=== PATIENT | female | born 1995 | race American Indian/Alaskan Native ===

== ENCOUNTER 2016-09-21 15:06 | Observation (INO) | payer MEDICAID ==
[2016-09-21] MEDS ORDERED: NACL 0.9% 1000 ML 2,000 ML ONE (16:02)
[2016-09-21] MEDS ORDERED: NACL 0.9% 1000 ML 2,000 ML IV ONE (16:06)
[2016-09-21] MEDS ORDERED: ZOFRAN IV ONE (16:22)
[2016-09-21] MEDS ORDERED: SUBLIMAZE IV ONE (16:22)
--- NOTE | 2016-09-21 16:28 | Emergency Department Report ---
HPI - General Chief Complaint: Vaginal Bleeding Time Seen by Provider: 09/21/16 16:14 - HPI HPI: Room 19 The patient is a 21-year-old female presenting with chief complaint of vaginal bleeding. The patient is status post D&C 3 weeks ago at 8 weeks gestational age. The patient states she has had vaginal bleeding for the past 3 weeks going through approximately 20 pads per day. Patient states his afternoon at 13 :30 she began having heavier vaginal bleeding while at work. Patient reports having a syncopal episode at work after the increase in vaginal bleeding and EMS was called. The patient currently complains of feeling dizzy when she stands up in addition to lower bowel pain and low back pain otherwise denies complaints Location: Pelvis, see above Duration: [see above] Quality: Pain, dizziness Severity: Moderate Modifying factors: [see above] Context: [see above] Mode of transportation: [not driving] ED Past Medical Hx - Past Medical History Previous Medical History?: Yes Additional medical history: Iron deficiency anemia - Surgical History Past Surgical History?: Yes Additional Surgical History: D&C at 8 weeks gestational age - Family History Family history: no significant - Social History Smoking Status: Former Smoker (none 2 weeks) Substance Use Type: None (denies illicit drug use), Alcohol - Medications Home Medications: Home Medications Medication Instructions Recorded Confirmed Last Taken Type No Known Home Medications [No 09/21/16 09/21/16 Unknown History Reported Home Medications] ED Review of Systems ROS: Stated complaint: EMS Other details as noted in HPI Comment: All other systems reviewed and negative Constitutional: denies: chills, fever Eyes: denies: eye pain, eye discharge, vision change ENT: denies: ear pain, throat pain Respiratory: denies: cough, shortness of breath, wheezing Cardiovascular: denies: chest pain, palpitations Endocrine: no symptoms reported Gastrointestinal: abdominal pain Genitourinary: abnormal menses Musculoskeletal: denies: back pain, joint swelling, arthralgia Skin: denies: rash, lesions Neurological: other (syncope). denies: headache, weakness, paresthesias Psychiatric: denies: anxiety, depression Hematological/Lymphatic: denies: easy bleeding, easy bruising Physical Exam - Physical Exam Vital Signs: Vital Signs 09/21/16 16:11 Temperature 98.2 F Pulse Rate 116 H Blood Pressure 78/30 O2 Sat by Pulse 95 Oximetry Physical Exam: GENERAL: The patient is well-developed well-nourished female lying on stretcher appearing to be in mild discomfort. [] HEENT: Normocephalic. Atraumatic. Extraocular motions are intact. Patient has moist mucous membranes. NECK: Supple. Midline CHEST/LUNGS: Clear to auscultation. There is no respiratory distress noted. HEART/CARDIOVASCULAR: Regular. There is no tachycardia. There is no gallop rub or murmur. ABDOMEN: Abdomen is soft, with diffuse discomfort to palpation. Patient has normal bowel sounds. There is no abdominal distention. SKIN: There is no rash. There is no edema. There is no diaphoresis. NEURO: The patient is awake, alert, and oriented. The patient is cooperative. The patient has normal speech MUSCULOSKELETAL: There is no evidence of acute injury. PELVIC: Large amount of bright red blood in the vaginal vault. Multiple large clots removed from vaginal vault without clearing. Still unable to visualize cervix given heavy bleeding ED Course Vital Signs 09/21/16 16:11 Temperature 98.2 F Pulse Rate 116 H Blood Pressure 78/30 O2 Sat by Pulse 95 Oximetry - Reevaluation(s) Reevaluation #1: 09/21/16 19:58 Patient again became hypotensive. Subsequently 2 units of PRBCs ordered - Consultations Consultation #1: 09/21/16 19:[address] Aguilera (PHOTONICS ENGINEERING TECHNICIAN)-will take to the or for D&C. Requests 2 units of blood be transfused given recurrent hypotension ED Medical Decision Making - Lab Data Result diagrams: 09/21/16 16:54 Laboratory Tests 09/21/16 09/21/16 09/21/16 16:54 16:54 18:55 WBC 8.9 RBC 2.98 L Hgb 8.1 L Hct 28.3 L MCV 95 MCH 27 L MCHC 29 L RDW 15.1 Plt Count 148 Lymph % (Auto) 12.8 L [place] % (Auto) 5.2 Eos % (Auto) 0.1 Baso % (Auto) 0.2 Lymph # 1.1 L [place] # 0.5 Eos # 0.0 Baso # 0.0 Seg Neutrophils % 81.7 H Seg Neutrophils # 7.3 HCG, Quant 6249 H Blood Type B POSITIVE Antibody Screen Negative Crossmatch See Detail - Radiology Data Radiology results: report reviewed (pelvic ultrasound), image reviewed (pelvic ultrasound) - Differential Diagnosis retained products of conception, hemorrhagic shock Critical care attestation.: If time is entered above; I have spent that time in minutes in the direct care of this critically ill patient, excluding procedure time. ED Disposition Clinical Impression: Menorrhagia, Retained products of conception, Hemorrhagic shock Disposition: OP ADMITTED IP TO THIS HOSP Is pt being admited?: Yes Does the pt Need Aspirin: No Condition: Serious Time of Disposition: 20:00 (admitted to PHOTONICS ENGINEERING TECHNICIAN)
[2016-09-21 17:39] LABS: Basophils % (Auto) 0.2 % (0.0-1.8); Eosinophils % (Auto) 0.1 % (0.0-4.3); Mean Corpuscular HGB Conc 29 % (30-34); Mean Corpuscular Hemoglobin 27 pg (28-32); Mean Corpuscular Volume 95 fl (79-97); Platelet Count 148 K/mm3 (140-440); Red Blood Count 2.98 M/mm3 (3.65-5.03); Red Cell Distribution Width 15.1 % (13.2-15.2); White Blood Count 8.9 K/mm3 (4.5-11.0)
[2016-09-21 17:40] LABS: Hematocrit 28.3 % (30.3-42.9); Hemoglobin 8.1 gm/dl (10.1-14.3)
--- NOTE | 2016-09-21 18:53 | Ultrasound Report ---
FINAL REPORT EXAM: US PELVIC COMPLETE HISTORY: vaginal bleeding . D and C 3 weeks ago with bleeding and clot formation TECHNIQUE: Ultrasound of the pelvis using transabdominal imaging PRIORS: None. FINDINGS: Uterus: Uterus is enlarged in size and normal, anteverted in position, and homogeneous in echogenicity without focal fibroid formation. The uterus measures 17.4 x 8.5 x 11.0 cm in size. Cervix: There is a complex echogenic heterogeneous avascular mass in the cervical canal measuring 9.1 x 8.0 x 7.0 cm. Findings are concerning for blood products/hematoma. Retained products of conception are not entirely excluded. Endometrial stripe: Measures 14 mm in thickness and contains fluid and echogenic debris within the endometrial canal. Ovaries: Neither ovary is visualized during this exam, likely related to the size of the uterus. Other: There is no evidence for solid adnexal mass or free fluid in the cul-de-sac is seen. IMPRESSION: 1 .Large echogenic complex focus in the cervical canal. This most likely represent hematoma/blood products, however, retained products of conception are not entirely excluded 2. Fluid and echogenic debris within the endometrial canal of the uterus, likely related to blood products. 3. Enlarged uterus consistent with state of the patient. 4. Ovaries are not visualized
--- NOTE | 2016-09-21 18:59 | Ultrasound Report ---
FINAL REPORT EXAM: US TRANSVAGINAL HISTORY: vaginal bleeding s/p D and C 3 weeks ago with bleeding and clot formation TECHNIQUE: Ultrasound of the pelvis using transvaginal imaging PRIORS: Pelvic ultrasound 08/13/2016 FINDINGS: Uterus: Uterus is enlarged in size, anteverted in position, and normal and homogeneous in echogenicity without focal fibroid formation. The uterus measures 17.4 x 8.5 x 11.0 cm in size cm in size. Cervix: There is a complex echogenic heterogeneous avascular mass in the cervical canal measuring 9.1 x 8.0 x 7.0 cm. Findings are concerning for blood products/hematoma. Retained products of conception are not entirely excluded. Endometrial stripe: Measures 14 mm in thickness and contains fluid and echogenic debris within the endometrial canal. Ovaries: Neither ovary is visualized during this exam, likely related to the size of the uterus. Other: There is no evidence for solid adnexal mass or free fluid in the cul-de-sac is seen. IMPRESSION: 1 .Large echogenic complex focus in the cervical canal. This most likely represent hematoma/blood products, however, retained products of conception are not entirely excluded 2. Fluid and echogenic debris within the endometrial canal of the uterus, likely related to blood products. 3. Enlarged uterus consistent with state of the patient. 4. Ovaries are not visualized
[2016-09-21] MEDS ORDERED: NACL 0.9% 1000 ML 1,000 ML ONE ×4 (19:48→22:58)
[2016-09-21] MEDS ORDERED: NACL 0.9% 500 ML 500 ML IV ONE (19:50)
[2016-09-21] MEDS ORDERED: SUBLIMAZE ONE (20:34)
[2016-09-21] MEDS ORDERED: DIPRIVAN 10 MG/ML IV ONE (20:34)
[2016-09-21] MEDS ORDERED: VERSED ONE (20:40)
[2016-09-21] MEDS ORDERED: PEPCID IV ONE (20:49)
[2016-09-21] MEDS ORDERED: ANCEF/STERILE WATER 2 GM/20 ML 20 ML IV ONE (20:50)
[2016-09-21] MEDS ORDERED: METHERGINE IM ONE (20:50)
--- NOTE | 2016-09-21 20:55 | Short Stay Summary ---
Short Stay Documentation Date of service: 09/21/16 Narrative H&P: The patient is a 21-year-old female presenting with chief complaint of vaginal bleeding. The patient is status post D&C 3 weeks ago at 8 weeks gestational age. The patient states she has had vaginal bleeding for the past 3 weeks going through approximately 20 pads per day. Patient states his afternoon at 13:30 she began having heavier vaginal bleeding while at work. Patient reports having a syncopal episode at work after the increase in vaginal bleeding and EMS was called. The patient currently complains of feeling dizzy when she stands up in addition to lower bowel pain and low back pain otherwise denies complaints. Patient has an hcg of over 6000. - History H&P: dictated Past Medical History: No medical history Social history: single - Allergies and Medications Current Medications: Allergies latex Adverse Reaction (Intermediate, Verified 05/25/15 13:12) Hives Home Medications Medication Instructions Recorded Confirmed Last Taken Type No Known Home Medications [No 09/21/16 09/21/16 Unknown History Reported Home Medications] - Physical exam General appearance: no acute distress Integumentary: no rash, no growths Lungs: Clear to auscultation Breasts: deferred Heart: Regular rate, Normal S1, Normal S2 Gastrointestinal: normal, normoactive bowel sounds Female Genitourinary: other (large amount of blood and clots in vaginal vault) Rectal Exam: deferred - Brief post op/procedure progress note Date of procedure: 09/21/16 Pre-op diagnosis: Retained products of D&C after termination Post-op diagnosis: same Procedure: Dilation and Evacuation Anesthesia: MAC Findings: enlarged uterus with large mass of tissue visible at os along with large amount of clots in vaginal vault Surgeon: SUKUMAR ADAIR Estimated blood loss: other (300cc in clots prior to start of procedure) Pathology: list (products of conception) Specimen disposition: to lab Condition: stable - Hospital course Hospital course: Unremarkable - Disposition Condition at discharge: Good Disposition: DISCHARGED TO HOME OR SELFCARE - Discharge Diagnoses (1) Menorrhagia Status: Acute (2) Retained products of conception Status: Chronic Comment: After induced Short Stay Discharge Plan Activity: advance as tolerated Weight Bearing Status: Weight Bear as Tolerated Diet: regular Additional Instructions: Pelvic rest for 4 weeks Follow up with: SONIDO CAREY MD [Staff Physician] - 14 Days Prescriptions: HYDROcodone/APAP 5-325 [[place] 5/325] 1 each PO Q6HR PRN #15 tablet PRN Reason: Pain Ibuprofen [Motrin] 600 mg PO Q8H PRN #25 tablet PRN Reason: Pain
[2016-09-21] MEDS ORDERED: ANCEF/STERILE WATER 2 GM/20 ML 20 ML IV NR (21:00)
--- NOTE | 2016-09-21 21:05 | Anesthesia Consultation ---
Anesthesia Consult and Med Hx Date of service: 09/21/16 - Airway Anesthetic Teeth Evaluation: Good ROM Head & Neck: Adequate Mental/Hyoid Distance: Adequate Mallampati Class: Class II Intubation Access Assessment: Probably Good - Pulmonary Exam CTA: Yes - Cardiac Exam Cardiac Exam: RRR - Pre-Operative Health Status ASA Pre-Surgery Classification: ASA2, Emergency Proposed Anesthetic Plan: General - Pulmonary Hx Smoking: Yes Hx Asthma: No COPD: No Hx Pneumonia: No - Cardiovascular System Hx Hypertension: No - Central Nervous System Hx Seizures: No Hx Psychiatric Problems: No - Endocrine Hx Renal Disease: No Hx End Stage Renal Disease: No Hx Liver Disease: No Hx Non-Insulin Dependent Diabetes: No Hx Hypothyroidism: No Hx Hyperthyroidism: No - Hematic Hx Anemia: Yes Hx Sickle Cell Disease: No - Other Systems Hx Alcohol Use: No Hx Substance Use: Yes (marijuana)
[2016-09-21] MEDS ORDERED: ZOFRAN IV PRN ×2 (21:06→22:17)
[2016-09-21] MEDS ORDERED: DILAUDID IV PRN (21:06)
[2016-09-21] MEDS ORDERED: REGLAN IV PRN (21:06)
--- NOTE | 2016-09-21 21:06 | Anesthesia Day of Surgery ---
Anesthesia Day of Surgery - Day of Surgery Patient Examined: Yes Patient H&P Reviewed: Yes Patient is NPO: Yes
[2016-09-21] MEDS ORDERED: SILVER NITRATE TP ONE (21:40)
[2016-09-21] MEDS ORDERED: ZOFRAN ONE (22:16)
[2016-09-21] MEDS ORDERED: XYLOCAINE MPF 2% ONE (22:16)
[2016-09-21] MEDS ORDERED: BENADRYL ONE (22:16)
[2016-09-21] MEDS ORDERED: NORCO 5/325 PO PRN (22:17)
--- NOTE | 2016-09-21 22:46 | Post Anesthesia Evaluation ---
- Post Anesthesia Evaluation Patient Participated: Yes Airway Patent: Yes Stable Respiratory Function: Yes Nausea/Vomiting: No Temp > 96.8F: Yes Pain Manageable: Yes Adequeate Hydration: Yes Anesthesia Complications: No Block Receding Appropriately: Not Applicable Patient on Ventilator: No
[2016-09-21] MEDS ORDERED: D5/0.45NS 1,000 ML IV SCH (23:00)
[2016-09-22 05:02] LABS: Basophils % (Auto) 0.1 % (0.0-1.8); Eosinophils % (Auto) 0.1 % (0.0-4.3); Hematocrit 27.1 % (30.3-42.9); Hemoglobin 8.7 gm/dl (10.1-14.3); Mean Corpuscular HGB Conc 32 % (30-34); Mean Corpuscular Hemoglobin 28 pg (28-32); Mean Corpuscular Volume 86 fl (79-97); Platelet Count 156 K/mm3 (140-440); Red Blood Count 3.15 M/mm3 (3.65-5.03); Red Cell Distribution Width 14.4 % (13.2-15.2); White Blood Count 11.2 K/mm3 (4.5-11.0)
[2016-09-22 05:32] LABS: Bilirubin,Urine NEG (Negative); Blood,Urine LG (Negative); Ketones,Urine NEG (Negative); Leukocyte Esterase,Urine NEG (Negative); Mucus,Urine FEW /HPF; Nitrite,Urine NEG (Negative); Protein,Urine <15 mg/dL mg/dL (Negative); Urobilinogen,Urine < 2.0 mg/dL (<2.0)
[2016-09-22 09:14] VITALS: BP 104/52
--- NOTE | 2016-09-22 12:36 | Operative Report ---
PREOPERATIVE DIAGNOSES: 1. Retained products of conception following an induced . 2. Menorrhagia. 3. Hemorrhagic shock. POSTOPERATIVE DIAGNOSES: 1. Retained products of conception following an induced . 2. Menorrhagia. 3. Hemorrhagic shock. PROCEDURE: Dilation and evacuation of uterus. SURGEON: Cordelia Aguilera MD ANESTHESIA: LMA. IV FLUIDS: 1000 mL. URINE OUTPUT: 200 mL clear at the beginning of the procedure. ESTIMATED BLOOD LOSS: 300 mL in clots within the vaginal vault prior to descent of the procedure. INDICATIONS: The patient is a 21-year-old 3, para 3, who presented to the Emergency Room after having a single episode at her work place. She was bleeding approximately 20 pads a day with an increase in amount today. For the last 3 weeks after she underwent an elective at approximately 8 weeks gestational age. The patient stated that she thought the amount of bleeding was normal after this type of procedure. When she presented to the Emergency Department, she was hypotensive and was still profusely bleeding. DESCRIPTION OF PROCEDURE: The patient was taken to the OR, identified as herself. The IV running and in place. She was given adequate anesthesia and placed in the dorsal lithotomy position. She was prepped and draped in the normal sterile fashion. In the vaginal vault, there were large amounts of blood clots that were coming out during the prep. Attention was turned to the patient. She was then prepped and draped in the normal sterile fashion. Attention was turned to the patient's urethra. The bladder was drained of approximately 200 mL of clear yellow urine. The bivalved speculum was then placed through the patient's vagina. There was a large approximately 4 cm piece of tissue that was protruding from the cervical os that was grasped with a ring forceps and handed off to pathology Following this, the suction curettage was performed with a #7 curved curette. There were multiple large pieces of tissue that were retrieved from the uterus. Once the suction curettage was completed, a banjo curette was used to perform a sharp curettage until there was a gritty texture noted in all four quadrants of the uterus. At this point, the uterus began to clamp down and the bleeding began to become very minimal. Once the bleeding was minimal, all the instruments were removed from the patient's vagina. She was awakened and taken to recovery in stable condition. The sponge, lap, needle, and instrument counts were correct x2. She tolerated the procedure well. JOB# [id number] MEMO/TIBURCIO
== END 2016-09-22 11:00 | disposition home or self-care (01) ==
LOC: ED 15:06 → OR 20:38 → OB 22:06
PROVIDERS: ADMIT Obstetrics & Gynecology; ATTEND Obstetrics & Gynecology
DX: O04.6 Delayed or excessive hemorrhage following (induced) termination of pregnancy (principal); O04.8 (Induced) termination of pregnancy with other and unspecified complications
CPT/HCPCS: 36415; 59812; 76830; 76856; 81001; 84702; 85025; 86850; 86900; 86901; 86920; 88304; 96374; 96375; 99285; G0378; J0690; J1200; J2210; J2405; J2704; J3010; J7030; J7040; P9016; 88305; 96361; J2250

== ENCOUNTER 2017-10-07 11:25 | Emergency (ER) | payer MEDICAID ==
[2017-10-07 12:20] LABS: Bilirubin,Urine NEG (Negative); Blood,Urine NEG (Negative); Color,Urine Yellow (Yellow); Mucus,Urine 1+ /HPF; Nitrite,Urine NEG (Negative)
[2017-10-07 13:40] LABS: Basophils % (Auto) 0.3 % (0.0-1.8); Eosinophils % (Auto) 0.5 % (0.0-4.3); Hematocrit 35.3 % (30.3-42.9); Hemoglobin 11.4 gm/dl (10.1-14.3); Lymphocytes # (Auto) 1.4 K/mm3 (1.2-5.4); Lymphocytes % (Auto) 21.1 % (13.4-35.0); Mean Corpuscular HGB Conc 32 % (30-34); Mean Corpuscular Hemoglobin 28 pg (28-32); Mean Corpuscular Volume 86 fl (79-97); Monocytes # (Auto) 0.4 K/mm3 (0.0-0.8); Monocytes % (Auto) 6.7 % (0.0-7.3); Platelet Count 202 K/mm3 (140-440); Red Cell Distribution Width 14.2 % (13.2-15.2)
[2017-10-07 13:41] LABS: Alanine Aminotransferase 7 units/L (7-56); Albumin 3.9 g/dL (3.9-5); BUN/Creatinine Ratio 13; Blood Urea Nitrogen 5 mg/dL (7-17); Calcium 8.6 mg/dL (8.4-10.2); Hemolysis Index 2
--- NOTE | 2017-10-07 15:16 | Ultrasound Report ---
FINAL REPORT EXAM: US OB TRANSVAGINAL HISTORY: abd pain TECHNIQUE: Grayscale and color doppler ultrasound of the fetus was performed transabdominally and transvaginally. PRIORS: Ob ultrasound 09/21/2016. FINDINGS: A single, live intrauterine fetus is present in cephalic presentation with a heart rate of 146 beats per minute. The placenta is grade 0 and anterior in location. The leading edge of the placenta is within 2 centimeters of the internal cervical os. There appears to be a separate lobe of the placenta anteriorly. The maternal cervix is closed measuring 4.2 centimeters in length. The amniotic fluid volume is subjectively normal. Biparietal diameter: 17 weeks and 3 days. Head circumference: 17 weeks and 4 days. Abdominal circumference: 17 weeks and 4 days. Femur length: 17 weeks and 4 days. Estimated gestational age based on ultrasound criteria is 17 weeks and 4 days with an LILO of 03/13/2018. Estimated weight is 201 grams. IMPRESSION: 1. Live intrauterine fetus measuring at 17 weeks and 4 days gestational age with an LILO of 03/13/2018. 2. Marginal placenta. Recommend follow-up ultrasound in 5 weeks to assess for migration. 3. Probable succenturiate lobe of the placenta.
[2017-10-08 05:52] VITALS: BP 126/84
[2017-10-08] MEDS ORDERED: TYLENOL PO ONE (10:28)
--- NOTE | 2017-10-08 10:35 | Emergency Department Report ---
ED General Adult HPI - General Chief complaint: Abdominal Pain Stated complaint: 17 WKS PREG. ABD PAINS Time Seen by Provider: 10/08/17 08:53 Source: patient Mode of arrival: Ambulatory Limitations: No Limitations - History of Present Illness Initial comments: Ms. Forbes is a 21 year old female who presents with 2 days of moderately severe pelvic pain. She has relocated from [place] to [place]. She has not received the results of her previous US. She is worried about the baby. She is also worried about diagnosis of "partial placenta previa." LILO 03/13/18 EGA 17 w 6 d no bleeding no discharge. She also desires treatment for trichomonas infection. -: Gradual, days(s) (2) Location: pelvis Radiation: non-radiation Severity scale (0 -10): 2 Quality: dull Associated Symptoms: denies: chest pain, cough, headaches, loss of appetite, malaise, nausea/vomiting - Related Data Previous Rx's Medication Instructions Recorded Last Taken Type HYDROcodone/APAP 5-325 [[place] 1 each PO Q6HR PRN #15 tablet 09/21/16 Unknown Rx 5/325] Ibuprofen [Motrin] 600 mg PO Q8H PRN #25 tablet 09/21/16 Unknown Rx Allergies Allergy/AdvReac Type Severity Reaction Status Date / Time latex AdvReac Intermediate Hives Verified 05/25/15 13:12 ED Review of Systems ROS: Stated complaint: 17 WKS PREG. ABD PAINS Other details as noted in HPI Comment: All other systems reviewed and negative Constitutional: denies: fever, malaise Respiratory: denies: cough Cardiovascular: denies: chest pain ED Past Medical Hx - Past Medical History Previous Medical History?: Yes Hx Hypertension: No Hx Congestive Heart Failure: No Hx Diabetes: No Hx Deep Vein Thrombosis: No Hx Liver Disease: No Hx Renal Disease: No Hx Sickle Cell Disease: No Hx Seizures: No Hx Asthma: No Hx COPD: No Hx HIV: No Additional medical history: Iron deficiency anemia - Surgical History Past Surgical History?: Yes Additional Surgical History: D&C at 8 weeks gestational age - Social History Smoking Status: Never Smoker Substance Use Type: None - Medications Home Medications: Home Medications Medication Instructions Recorded Confirmed Last Taken Type HYDROcodone/APAP 5-325 [[place] 1 each PO Q6HR PRN #15 tablet 09/21/16 Unknown Rx 5/325] Ibuprofen [Motrin] 600 mg PO Q8H PRN #25 tablet 09/21/16 Unknown Rx ED Physical Exam - General Limitations: No Limitations General appearance: alert, in no apparent distress - Head Head exam: Present: atraumatic, normocephalic - Eye Eye exam: Present: normal appearance Pupils: Present: normal accommodation - ENT ENT exam: Present: mucous membranes moist - Neck Neck exam: Present: normal inspection - Respiratory Respiratory exam: Present: normal lung sounds bilaterally. Absent: respiratory distress, wheezes, rales, rhonchi - Cardiovascular Cardiovascular Exam: Present: regular rate, normal rhythm. Absent: systolic murmur, diastolic murmur, rubs, gallop - GI/Abdominal GI/Abdominal exam: Present: soft, normal bowel sounds. Absent: distended, tenderness, guarding, rebound - Extremities Exam Extremities exam: Present: normal inspection, full ROM, tenderness, pedal edema - Back Exam Back exam: Present: normal inspection - Neurological Exam Neurological exam: Present: alert, oriented X3 - Psychiatric Psychiatric exam: Present: normal affect, normal mood - Skin Skin exam: Present: warm, dry, intact, normal color. Absent: rash ED Course Vital Signs 10/07/17 10/08/17 10/08/17 11:33 01:44 05:51 Temperature 98.5 F 98.4 F 98.1 F Pulse Rate 78 84 90 Respiratory 16 14 16 Rate Blood Pressure 120/69 129/61 Blood Pressure 126/84 [Left] O2 Sat by Pulse 100 100 99 Oximetry ED Medical Decision Making - Lab Data Result diagrams: 10/07/17 12:38 10/07/17 12:38 Laboratory Results - last 24 hr 10/07/17 10/07/17 10/07/17 11:52 12:38 12:38 WBC 6.6 RBC 4.10 Hgb 11.4 Hct 35.3 MCV 86 MCH 28 MCHC 32 RDW 14.2 Plt Count 202 Lymph % (Auto) 21.1 [place] % (Auto) 6.7 Eos % (Auto) 0.5 Baso % (Auto) 0.3 Lymph # 1.4 [place] # 0.4 Eos # 0.0 Baso # 0.0 Seg Neutrophils % 71.4 H Seg Neutrophils # 4.7 Sodium 137 Potassium 3.8 Chloride 101.3 Carbon Dioxide 22 Anion Gap 18 BUN 5 L Creatinine 0.4 L Estimated GFR > 60 BUN/Creatinine Ratio 13 Glucose 76 Calcium 8.6 Total Bilirubin 0.30 AST 15 ALT 7 Alkaline Phosphatase 47 Total Protein 7.2 Albumin 3.9 Albumin/Globulin Ratio 1.2 HCG, Quant Urine Color Yellow Urine Turbidity Clear Urine pH 8.0 H Ur Specific [place] 1.021 Urine Protein 30 mg/dl Urine Glucose (UA) Neg Urine Ketones Tr Urine Blood Neg Urine Nitrite Neg Urine Bilirubin Neg Urine Urobilinogen 2.0 Ur Leukocyte Esterase Sm Urine WBC (Auto) 4.0 Urine RBC (Auto) 5.0 U Epithel Cells (Auto) 14.0 H Urine Mucus 1+ 10/07/17 12:38 WBC RBC Hgb Hct MCV MCH MCHC RDW Plt Count Lymph % (Auto) [place] % (Auto) Eos % (Auto) Baso % (Auto) Lymph # [place] # Eos # Baso # Seg Neutrophils % Seg Neutrophils # Sodium Potassium Chloride Carbon Dioxide Anion Gap BUN Creatinine Estimated GFR BUN/Creatinine Ratio Glucose Calcium Total Bilirubin AST ALT Alkaline Phosphatase Total Protein Albumin Albumin/Globulin Ratio HCG, Quant 53902 H Urine Color Urine Turbidity Urine pH Ur Specific [place] Urine Protein Urine Glucose (UA) Urine Ketones Urine Blood Urine Nitrite Urine Bilirubin Urine Urobilinogen Ur Leukocyte Esterase Urine WBC (Auto) Urine RBC (Auto) U Epithel Cells (Auto) Urine Mucus - Radiology Data Radiology results: report reviewed - Medical Decision Making Ms. Forbes presents with mild 2/10 pelvic pain without vaginal bleeding nor vaginal discharge. She was pleased to hear that baby was ok according to US. She was treated with flagyl in the ED. Patient has f/u with new OB and MFM specialist in the area. Critical care attestation.: If time is entered above; I have spent that time in minutes in the direct care of this critically ill patient, excluding procedure time. ED Disposition Clinical Impression: , Trichomonas infection Disposition: DC-01 TO HOME OR SELFCARE Is pt being admited?: No Condition: Good Instructions: Trichomoniasis (ED) Referrals: PRIMARY CARE, [Primary Care Provider] - 3-5 Days Time of Disposition: 10:48
[2017-10-08] MEDS ORDERED: FLAGYL PO ONE (11:50)
== END 2017-10-08 12:02 | disposition home or self-care (01) ==
LOC: ED 11:25
DX: O98.812 Other maternal infectious and parasitic diseases complicating pregnancy, second trimester (principal); A59.9 Trichomoniasis, unspecified; Z3A.17 17 weeks gestation of pregnancy
CPT/HCPCS: 36415; 76805; 76816; 76817; 80053; 81001; 84702; 85025; 99284

== ENCOUNTER 2017-11-11 11:09 | Outpatient (CLI) | payer MEDICAID ==
[2017-11-11 12:48] LABS: Bacteria,Urine 1+ /HPF (Negative); Mucus,Urine 3+ /HPF
[2017-11-11 12:59] LABS: Amphetamine Screen,Urine PRESUMPTIVE NEGATIVE; Benzodiazepines Screen,Urine PRESUMPTIVE NEGATIVE; Cocaine Screen,Urine PRESUMPTIVE NEGATIVE; Methadone Screen,Urine PRESUMPTIVE NEGATIVE; Opiate Screen,Urine PRESUMPTIVE NEGATIVE
[2017-11-11 13:16] LABS: Bilirubin,Urine NEG (Negative); Blood,Urine SM (Negative); Color,Urine Yellow (Yellow)
[2017-11-11 13:18] LABS: Cannabinoid Screen,Urine PRESUMPTIVE POSITIVE
[2017-11-11 13:23] VITALS: BP 110/59
== END 2017-11-11 13:45 | disposition home or self-care (01) ==
LOC: TRG 11:09
PROVIDERS: ATTEND Obstetrics & Gynecology
DX: O47.02 False labor before 37 completed weeks of gestation, second trimester (principal); Z79.899 Other long term (current) drug therapy; Z3A.22 22 weeks gestation of pregnancy
CPT/HCPCS: 59025; 80307; 81001

== ENCOUNTER 2017-12-22 22:11 | Outpatient (CLI) | payer BC, MEDICAID ==
[2017-12-22 22:41] VITALS: BP 118/63
[2017-12-22] MEDS ORDERED: LACTATED RINGERS 500 ML IV ONE (22:51)
--- NOTE | 2017-12-23 06:37 | Ultrasound Report ---
FINAL REPORT EXAM: US OB LIMITED HISTORY: KRISSY/ Leaking Fluid TECHNIQUE: A limited OB sonogram was obtained for evaluation of the abdomen of fluid index. FINDINGS: The KRISSY is 13.8 cm which is normal. The heart rate is 167 BPM. A survey of organs was not obtained. IMPRESSION: KRISSY is 13.8 cm, which is normal. The heart rate is 167 BPM.
== END 2017-12-22 23:27 | disposition home or self-care (01) ==
LOC: TRG 22:11 → LD 22:16 → TRG 23:27
PROVIDERS: ATTEND Obstetrics & Gynecology
DX: O42.92 Full-term premature rupture of membranes, unspecified as to length of time between rupture and onset of labor (principal); Z3A.28 28 weeks gestation of pregnancy
CPT/HCPCS: 59025; 76815; J7120

== ENCOUNTER 2018-02-04 19:09 | Observation (INO) | payer MEDICAID ==
[2018-02-04] MEDS ORDERED: LACTATED RINGERS 1,000 ML IV ONE (19:25)
[2018-02-04 19:38] LABS: Bacteria,Urine 1+ /HPF (Negative); Bilirubin,Urine NEG (Negative); Blood,Urine NEG (Negative); Color,Urine Yellow (Yellow); Mucus,Urine FEW /HPF; Protein,Urine <15 mg/dL mg/dL (Negative)
[2018-02-04] MEDS ORDERED: ROCEPHIN/NS 1 GM/50 ML 1 GM/50 ML BAG IV ONE (20:37)
[2018-02-04] MEDS ORDERED: cefTRIAXone 1 GM in NACL 0.9% 20 ML IV ONE (21:00)
[2018-02-04] MEDS ORDERED: AMBIEN PO PRN (22:15)
[2018-02-04] MEDS ORDERED: ZOFRAN IV PRN (22:15)
[2018-02-04] MEDS ORDERED: TYLENOL PO PRN (22:15)
[2018-02-04] MEDS ORDERED: MAGNESIUM SULFATE 4GM/100ML 4 GM/100 ML BAG IV ONE (22:22)
[2018-02-04] MEDS ORDERED: SUBLIMAZE IV PRN (22:24)
[2018-02-04] MEDS: CELESTONE SOLUSPAN IM SCH (23:45)
[2018-02-05] MEDS: LACTATED RINGERS 1,000 ML IV SCH ×2 (00:01→05:16)
[2018-02-05 00:12] LABS: Basophils % (Auto) 0.3 % (0.0-1.8); Eosinophils # (Auto) 0.1 K/mm3 (0.0-0.4); Eosinophils % (Auto) 0.8 % (0.0-4.3); Hematocrit 30.1 % (30.3-42.9); Hemoglobin 9.5 gm/dl (10.1-14.3); Lymphocytes # (Auto) 2.1 K/mm3 (1.2-5.4); Lymphocytes % (Auto) 28.5 % (13.4-35.0); Mean Corpuscular HGB Conc 32 % (30-34); Mean Corpuscular Volume 80 fl (79-97); Monocytes # (Auto) 0.6 K/mm3 (0.0-0.8); Monocytes % (Auto) 7.9 % (0.0-7.3); Platelet Count 202 K/mm3 (140-440); Red Blood Count 3.78 M/mm3 (3.65-5.03); Red Cell Distribution Width 14.1 % (13.2-15.2)
[2018-02-05 00:20] LABS: Mean Corpuscular Hemoglobin 25 pg (28-32)
[2018-02-05 00:21] LABS: Amphetamine Screen,Urine PRESUMPTIVE NEGATIVE; Benzodiazepines Screen,Urine PRESUMPTIVE NEGATIVE; Cocaine Screen,Urine PRESUMPTIVE NEGATIVE; Methadone Screen,Urine PRESUMPTIVE NEGATIVE; Opiate Screen,Urine PRESUMPTIVE NEGATIVE
[2018-02-05] MEDS: MAGNESIUM SULFATE 40GM/1000ML 40 GM/1,000 ML BAG IV SCH ×2 (00:21→19:42)
[2018-02-05 00:36] LABS: Hepatitis C Virus Antibody Non-Reactive (NonReactive)
[2018-02-05 01:19] LABS: Cannabinoid Screen,Urine PRESUMPTIVE POSITIVE
[2018-02-05] MEDS ORDERED: FLAGYL PO ONE ×2 (02:00→22:28)
--- NOTE | 2018-02-05 02:10 | Ultrasound Report ---
FINAL REPORT PROCEDURE: US OB > = 14 WEEKS FETUS TECHNIQUE: Real-time transabdominal sonography of the uterus, placenta, amniotic fluid, adnexa, and fetus was performed with image documentation. Measurements were obtained to determine age/size. M-mode Doppler was used to document heartbeat. CPT 76903 HISTORY: ; CONTRACTIONS; 3.5CM DILATED COMPARISON: No prior studies are available for comparison. FINDINGS: ADDITIONAL GESTATION: None. GENERAL: IUP: Single living intrauterine . Position: Cephalic Placental position: Anterior, without previa. Amniotic fluid volume: Normal. MATERNAL: Uterus: Within normal limits. Cervical length: 2.8 cm. Internal Os: Closed. FETUS: Heart rate and rhythm: 137 beats per minute anatomic survey: Normal. There is limited visualization of the spine, umbilical cord and brain due to position. MEASUREMENTS: BPD: 8.51 centimeters corresponding to 34 weeks and 2 days HC: 31.47 centimeters correspond at 35 weeks and 2 days AC: 31.73 centimeters correspond at 35 weeks and 5 days FL: 7 centimeters correspond at 36 weeks Mean Gestational Age (composite criteria): 35 weeks and 2 days Ratio biometry: Normal. Estimated Weight: 10/22/2004 grams. Interval growth: Appropriate. Estimated Due Date (earliest scan): 03/09/2018 IMPRESSION: Single intrauterine gestation at 35 weeks and 2 days. Estimated due date: 03/09/2018. Normal survey with appropriate growth.
[2018-02-05 02:28] LABS: Rubella IgG Antibody Immune (Immune)
--- NOTE | 2018-02-05 08:59 | Consultation ---
History of Present Illness Reason for consult: contractions (Admitted 02/04/18 for PTL. Consult requested . 22 y.o. at 34.6 weeks with reported contractions " for a couple of days" History of PTL/PTD self D/C [place] regimen Reported recent STI for TRICH unable to tolerate STI treatment . Currently under MgSO4 and BMZ regimen. Denies LOF, ABD pain, N/V, temp DFM, and VB . Since this am Reports decrease in contractions ( frequency and intensity) . ) Past History - Obstetrical History : 5 Medications and Allergies Allergies Allergy/AdvReac Type Severity Reaction Status Date / Time latex AdvReac Intermediate Hives Verified 05/25/15 13:12 Home Medications Medication Instructions Recorded Confirmed Last Taken Type Hydroxyprogesterone Caproat/Pf 1 vial IM QWEEK 11/11/17 02/04/18 3 Months Ago History [Kaylee 250 mg/ml Vial] ~11/07/17 Active Meds: Active Medications Acetaminophen (Tylenol) 650 mg PO Q4H PRN PRN Reason: Pain MILD(1-3)/Fever >100.5/DEWEY Betamethasone Acet/Betameth SodPhos (Celestone Soluspan) 12 mg IM Q24H JOSE MARIA Stop: 02/05/18 23:01 Last Admin: 02/04/18 23:45 Dose: 12 mg Fentanyl (Sublimaze) 100 mcg IV Q2H PRN PRN Reason: Labor Pain Lactated Ringer's (Lactated Ringers) 1,000 mls @ 125 mls/hr IV DIRECT JOSE MARIA Last Admin: 02/05/18 05:16 Dose: 75 mls/hr Magnesium Sulfate (Magnesium Sulfate 40gm/1000ml) 40 gm in 1,000 mls @ 50 mls/ hr IV DIRECT JOSE MARIA Last Admin: 02/05/18 00:21 Dose: 2 gm/hr, 50 mls/hr Ondansetron HCl (Zofran) 4 mg IV Q6H PRN PRN Reason: Nausea And Vomiting Zolpidem Tartrate (Ambien) 10 mg PO QHS PRN PRN Reason: Sleep Last Admin: 02/05/18 01:34 Dose: 10 mg Review of Systems Constitutional: no fever Eyes: deferred Ears, nose, mouth and throat: no headache Cardiovascular: no edema, no shortness of breath, no high blood pressure Respiratory: no shortness of breath Gastrointestinal: no abdominal pain, no nausea, no vomiting Genitourinary: contractions (occasional ), no vaginal bleeding, no vaginal discharge, no leakage of fluid, no pelvic pain Integumentary: no rash Endocrine: no high blood sugars Hematologic/Lymphatic: no easy bleeding Allergic/Immunologic: no wheezing - Vital Signs Vital signs: Vital Signs Temp Resp 99.3 F 18 02/04/18 19:26 02/04/18 19:26 Temp Pulse Resp BP Pulse Ox 97.3 F L 106 H 16 103/58 100 02/05/18 08:29 02/05/18 08:31 02/05/18 08:29 02/05/18 08:31 02/05/18 00:26 - Physical Exam Breasts: Positive: deferred Cardiovascular: Regular rate Lungs: Positive: Normal air movement Abdomen: Negative: tenderness, guarding Uterus: Positive: other (gravid ). Negative: tender - Obstetrical FHR: category 1 Uterine Contraction Monitor Mode: External Cervical Dilatation: 3.5 (per RN ) Uterine Contraction Pattern: Irregular Uterine Tone Measurement Phase: Resting Uterine Contraction Intensity: Mild Results Result Diagrams: 02/04/18 23:25 Abnormal lab results 02/04/18 02/05/18 Range/Units 23:25 06:48 Hgb 9.5 L (10.1-14.3) gm/dl Hct 30.1 L (30.3-42.9) % MCH 25 L (28-32) pg [place] % (Auto) 7.9 H (0.0-7.3) % Magnesium 4.30 H (1.7-2.3) mg/dL All other labs normal. Ultrasound: report reviewed ([facility] US 02/04/18 34.5 wks EGA ( AUA ) 35.2 VTX KRISSY 12.5 cm Cervix length of 2.8 cm Placenta Grade II EFW 2705 gm ) Assessment and Plan A 1. IUP @ 34.6 weeks 2. PTL may be related to untreated STI 3. Occasional contractions while on MgSO4 4. Reported Advanced cervical length of 3-4 cm 5. Shortened cervical length assessment 6. Anemia 7. Treat STI 8. BMZ for FLM 9. Reassuring growth assessment of 70% 10. Anemia 11. Positive UDS - THC 12. History of PTD times 3 13. Non compliance with Kaylee ( self d/c ) P. 1. Remain inpatient 2. MgSO4 and BMZ per protocol 3. Treat STI 4. Treat anemia - FESO4 5. With completion of BMZ and no cervical change may consider outpatient surveillance
--- NOTE | 2018-02-05 10:31 | History and Physical Report ---
History of Present Illness Date of examination: 02/05/18 Date of admission: 02/05/18 01:31 Chief complaint: contractions History of present illness: 22 yo at 34 weeks came into triage for abd pain with care at [place]. Patient states that she has been dx with trich in received meds and had emesis of meds unable to tolerate. SHe states that she has care In [place] and supposed to deliver at [place]. She has also received care for [facility]. She has a hx of ptl/ptd and was on 17 P up until several weeks ago in which she has d/c herself. Past History Past Medical History: no pertinent history Past Surgical History: no surgical history [employer] History: trichomonas Family/Genetic History: none Social history: no significant social history, single, smoking, other (THC). denies: alcohol abuse - Obstetrical History Expected Date of Delivery: 03/13/18 Actual Gestation: 34 Week(s) 6 Day(s) : 5 Para: 3 Hx # Term Pregnancies: 1 Number of Pregnancies: 2 Spontaneous Abortions: 1 Induced : 0 Number of Living Children: 3 Medications and Allergies Allergies Allergy/AdvReac Type Severity Reaction Status Date / Time latex AdvReac Intermediate Hives Verified 05/25/15 13:12 Home Medications Medication Instructions Recorded Confirmed Last Taken Type Hydroxyprogesterone Caproat/Pf 1 vial IM QWEEK 11/11/17 02/04/18 3 Months Ago History [Kaylee 250 mg/ml Vial] ~11/07/17 Active Meds: Active Medications Acetaminophen (Tylenol) 650 mg PO Q4H PRN PRN Reason: Pain MILD(1-3)/Fever >100.5/DEWEY Betamethasone Acet/Betameth SodPhos (Celestone Soluspan) 12 mg IM Q24H JOSE MARIA Stop: 02/05/18 23:01 Last Admin: 02/04/18 23:45 Dose: 12 mg Fentanyl (Sublimaze) 100 mcg IV Q2H PRN PRN Reason: Labor Pain Lactated Ringer's (Lactated Ringers) 1,000 mls @ 125 mls/hr IV DIRECT JOSE MARIA Last Admin: 02/05/18 05:16 Dose: 75 mls/hr Magnesium Sulfate (Magnesium Sulfate 40gm/1000ml) 40 gm in 1,000 mls @ 50 mls/ hr IV DIRECT JOSE MARIA Last Admin: 02/05/18 00:21 Dose: 2 gm/hr, 50 mls/hr Ondansetron HCl (Zofran) 4 mg IV Q6H PRN PRN Reason: Nausea And Vomiting Zolpidem Tartrate (Ambien) 10 mg PO QHS PRN PRN Reason: Sleep Last Admin: 02/05/18 01:34 Dose: 10 mg Review of Systems All systems: negative Genitourinary: contractions - Vital Signs Vital signs: Vital Signs Temp Resp 99.3 F 18 02/04/18 19:26 02/04/18 19:26 Temp Pulse Resp BP Pulse Ox 97.3 F L 95 H 16 100/59 100 02/05/18 08:29 02/05/18 09:31 02/05/18 08:29 02/05/18 09:31 02/05/18 00:26 - Physical Exam Breasts: Positive: normal Cardiovascular: Regular rate, Normal S1 Lungs: Positive: Clear to auscultation, Normal air movement Abdomen: Positive: normal appearance, soft, normal bowel sounds. Negative: distention, tenderness, guarding Genitourinary (Female): Positive: normal external genitalia, normal perenium Vulva: both: normal Uterus: Positive: normal size Anus/Rectum: Positive: normal perianal skin Extremities: Positive: normal Deep Tendon Reflex Grade: Normal +2 - Obstetrical FHR: category 1 Results Result Diagrams: 02/04/18 23:25 Abnormal lab results 02/04/18 02/05/18 Range/Units 23:25 06:48 Hgb 9.5 L (10.1-14.3) gm/dl Hct 30.1 L (30.3-42.9) % MCH 25 L (28-32) pg [place] % (Auto) 7.9 H (0.0-7.3) % Magnesium 4.30 H (1.7-2.3) mg/dL All other labs normal. Ultrasound: report reviewed Assessment and Plan A/P HD#1 labor at 34 weeks mag for 24 hrs: 2g/hr /mag levels BMZx2 ( first dose last night) Trich treated with 2g flagyl UTI ( treated with rocpehin) : culture US for dating and cervical length await recommnedations from [facility] records from previous doctor
[2018-02-05] MEDS: CELESTONE SOLUSPAN IM SCH (23:48)
--- NOTE | 2018-02-06 11:43 | Progress Note ---
Assessment and Plan A: IUP at 35w0d s/p two doses of betamethasone labor, arrested at 3 cm H/o delivery STI- treated No further cervical change P: Plan to discharge today with follow up next with OB labor precautions reviewed. Subjective - Subjective Date of service: 02/06/18 Principal diagnosis: IUP at 35 wks, labor, h/o labor Interval history: Pt without complaints today. She reports rare contractions but no pattern. She denies vaginal bleeding or leakage of fluid. Patient reports: movement normal, contractions (rare), no new complaints, no loss of fluid, no vaginal bleeding Objective - Vital Signs Vital Signs: Vital Signs - 12hr 02/06/18 02/06/18 02/06/18 00:19 00:32 00:43 Temperature 98.2 F Pulse Rate 81 89 Respiratory 20 20 Rate Blood Pressure 112/67 Blood Pressure 112/67 [Right] O2 Sat by Pulse 99 99 Oximetry 02/06/18 02/06/18 02/06/18 00:48 00:53 00:58 Temperature Pulse Rate 79 84 86 Respiratory Rate Blood Pressure Blood Pressure [Right] O2 Sat by Pulse 99 98 99 Oximetry 02/06/18 02/06/18 02/06/18 01:03 01:08 01:13 Temperature Pulse Rate 95 H 86 84 Respiratory Rate Blood Pressure Blood Pressure [Right] O2 Sat by Pulse 99 100 100 Oximetry 02/06/18 02/06/18 02/06/18 01:18 01:23 01:28 Temperature Pulse Rate 75 76 75 Respiratory Rate Blood Pressure Blood Pressure [Right] O2 Sat by Pulse 100 100 98 Oximetry 02/06/18 02/06/18 02/06/18 01:33 01:38 01:43 Temperature Pulse Rate 80 78 75 Respiratory Rate Blood Pressure Blood Pressure [Right] O2 Sat by Pulse 99 99 100 Oximetry 02/06/18 02/06/18 02/06/18 01:48 01:53 01:58 Temperature Pulse Rate 95 H 80 80 Respiratory Rate Blood Pressure 113/74 Blood Pressure [Right] O2 Sat by Pulse 99 98 99 Oximetry 02/06/18 02/06/18 02/06/18 02:03 02:08 02:13 Temperature Pulse Rate 76 81 77 Respiratory Rate Blood Pressure Blood Pressure [Right] O2 Sat by Pulse 99 99 98 Oximetry 02/06/18 02/06/18 02/06/18 02:18 02:23 02:28 Temperature Pulse Rate 81 77 82 Respiratory Rate Blood Pressure Blood Pressure [Right] O2 Sat by Pulse 98 98 96 Oximetry 02/06/18 02/06/18 02/06/18 02:31 02:33 02:38 Temperature Pulse Rate 83 79 83 Respiratory Rate Blood Pressure 116/73 Blood Pressure [Right] O2 Sat by Pulse 100 100 Oximetry 02/06/18 02/06/18 02/06/18 02:43 02:48 02:53 Temperature Pulse Rate 79 90 85 Respiratory Rate Blood Pressure Blood Pressure [Right] O2 Sat by Pulse 98 97 99 Oximetry 02/06/18 02/06/18 02/06/18 02:58 03:03 03:08 Temperature Pulse Rate 81 80 78 Respiratory Rate Blood Pressure Blood Pressure [Right] O2 Sat by Pulse 99 98 98 Oximetry 02/06/18 02/06/18 02/06/18 03:13 03:18 03:23 Temperature Pulse Rate 82 87 82 Respiratory Rate Blood Pressure Blood Pressure [Right] O2 Sat by Pulse 97 98 97 Oximetry 02/06/18 02/06/18 02/06/18 03:28 03:31 03:33 Temperature Pulse Rate 81 82 89 Respiratory Rate Blood Pressure 112/63 Blood Pressure [Right] O2 Sat by Pulse 98 98 Oximetry 02/06/18 02/06/18 02/06/18 03:38 03:43 03:48 Temperature Pulse Rate 85 85 82 Respiratory Rate Blood Pressure Blood Pressure [Right] O2 Sat by Pulse 98 98 98 Oximetry 02/06/18 02/06/18 02/06/18 03:53 03:58 04:03 Temperature Pulse Rate 87 88 102 H Respiratory Rate Blood Pressure Blood Pressure [Right] O2 Sat by Pulse 98 97 99 Oximetry 02/06/18 02/06/18 02/06/18 04:08 04:13 04:18 Temperature Pulse Rate 97 H 91 H 89 Respiratory Rate Blood Pressure Blood Pressure [Right] O2 Sat by Pulse 100 99 99 Oximetry 02/06/18 02/06/18 02/06/18 04:23 04:28 04:31 Temperature Pulse Rate 88 91 H 89 Respiratory Rate Blood Pressure 100/53 Blood Pressure [Right] O2 Sat by Pulse 97 97 Oximetry 02/06/18 02/06/18 02/06/18 04:33 04:38 04:43 Temperature Pulse Rate 94 H 93 H 92 H Respiratory Rate Blood Pressure Blood Pressure [Right] O2 Sat by Pulse 97 97 96 Oximetry 02/06/18 02/06/18 02/06/18 04:45 04:48 04:53 Temperature 98.5 F Pulse Rate 97 H 93 H Respiratory 20 Rate Blood Pressure Blood Pressure [Right] O2 Sat by Pulse 97 97 Oximetry 02/06/18 02/06/18 02/06/18 04:58 05:03 05:08 Temperature Pulse Rate 97 H 94 H 95 H Respiratory Rate Blood Pressure Blood Pressure [Right] O2 Sat by Pulse 96 96 96 Oximetry 02/06/18 02/06/18 02/06/18 05:13 05:18 05:23 Temperature Pulse Rate 98 H 96 H 98 H Respiratory Rate Blood Pressure Blood Pressure [Right] O2 Sat by Pulse 96 96 96 Oximetry 02/06/18 02/06/18 02/06/18 05:28 05:31 05:33 Temperature Pulse Rate 98 H 97 H 98 H Respiratory Rate Blood Pressure 97/50 Blood Pressure [Right] O2 Sat by Pulse 96 94 97 Oximetry 02/06/18 02/06/18 02/06/18 05:38 05:43 05:48 Temperature Pulse Rate 98 H 98 H 97 H Respiratory Rate Blood Pressure Blood Pressure [Right] O2 Sat by Pulse 96 97 96 Oximetry 02/06/18 02/06/18 02/06/18 05:53 05:58 06:03 Temperature Pulse Rate 96 H 98 H 98 H Respiratory Rate Blood Pressure Blood Pressure [Right] O2 Sat by Pulse 97 96 96 Oximetry 02/06/18 02/06/18 02/06/18 06:08 06:12 06:13 Temperature Pulse Rate 95 H 104 H 112 H Respiratory Rate Blood Pressure Blood Pressure [Right] O2 Sat by Pulse 96 81 L 98 Oximetry 02/06/18 02/06/18 02/06/18 06:18 06:23 06:28 Temperature Pulse Rate 99 H 100 H 105 H Respiratory Rate Blood Pressure Blood Pressure [Right] O2 Sat by Pulse 98 99 100 Oximetry 02/06/18 02/06/18 02/06/18 06:32 06:33 06:38 Temperature Pulse Rate 95 H 100 H 101 H Respiratory Rate Blood Pressure 111/60 Blood Pressure [Right] O2 Sat by Pulse 100 99 Oximetry 0525/18 05/25/18 05/25/18 06:43 06:48 06:53 Temperature Pulse Rate 96 H 89 94 H Respiratory Rate Blood Pressure Blood Pressure [Right] O2 Sat by Pulse 98 99 98 Oximetry 02/06/18 02/06/18 02/06/18 06:58 07:03 07:08 Temperature Pulse Rate 100 H 92 H 97 H Respiratory Rate Blood Pressure Blood Pressure [Right] O2 Sat by Pulse 98 98 97 Oximetry 02/06/18 02/06/18 02/06/18 07:13 07:18 07:23 Temperature Pulse Rate 94 H 92 H 87 Respiratory Rate Blood Pressure Blood Pressure [Right] O2 Sat by Pulse 98 97 97 Oximetry 02/06/18 02/06/18 02/06/18 07:28 07:32 07:33 Temperature Pulse Rate 96 H 95 H 98 H Respiratory Rate Blood Pressure 101/52 Blood Pressure [Right] O2 Sat by Pulse 97 98 Oximetry 02/06/18 02/06/18 02/06/18 07:38 07:43 07:48 Temperature Pulse Rate 91 H 92 H 103 H Respiratory Rate Blood Pressure Blood Pressure [Right] O2 Sat by Pulse 97 97 99 Oximetry 02/06/18 02/06/18 02/06/18 08:00 08:05 08:10 Temperature Pulse Rate 92 H 92 H 90 Respiratory Rate Blood Pressure Blood Pressure [Right] O2 Sat by Pulse 99 100 99 Oximetry 02/06/18 02/06/18 02/06/18 08:15 08:20 08:25 Temperature 97.3 F L Pulse Rate 89 93 H 91 H Respiratory 20 Rate Blood Pressure Blood Pressure 101/52 [Right] O2 Sat by Pulse 100 100 100 Oximetry 02/06/18 02/06/18 02/06/18 08:30 08:31 08:35 Temperature Pulse Rate 93 H 88 93 H Respiratory Rate Blood Pressure 111/63 Blood Pressure [Right] O2 Sat by Pulse 100 100 Oximetry 02/06/18 02/06/18 02/06/18 08:40 08:45 08:50 Temperature Pulse Rate 89 92 H 89 Respiratory Rate Blood Pressure Blood Pressure [Right] O2 Sat by Pulse 100 100 100 Oximetry 02/06/18 02/06/18 02/06/18 08:55 09:00 09:05 Temperature Pulse Rate 87 97 H 94 H Respiratory Rate Blood Pressure Blood Pressure [Right] O2 Sat by Pulse 100 100 98 Oximetry 02/06/18 02/06/18 02/06/18 09:10 09:14 09:15 Temperature Pulse Rate 89 94 H 93 H Respiratory Rate Blood Pressure Blood Pressure [Right] O2 Sat by Pulse 99 83 L 60 L Oximetry 02/06/18 02/06/18 02/06/18 09:20 09:25 09:30 Temperature Pulse Rate 95 H 102 H 91 H Respiratory Rate Blood Pressure Blood Pressure [Right] O2 Sat by Pulse 100 100 100 Oximetry 02/06/18 02/06/18 02/06/18 09:31 09:35 09:40 Temperature Pulse Rate 92 H 88 91 H Respiratory Rate Blood Pressure 118/71 Blood Pressure [Right] O2 Sat by Pulse 100 100 Oximetry 02/06/18 02/06/18 02/06/18 09:45 09:50 09:55 Temperature Pulse Rate 92 H 89 89 Respiratory Rate Blood Pressure Blood Pressure [Right] O2 Sat by Pulse 100 100 100 Oximetry 02/06/18 02/06/18 02/06/18 10:00 10:01 10:05 Temperature Pulse Rate 92 H 88 90 Respiratory Rate Blood Pressure Blood Pressure [Right] O2 Sat by Pulse 99 85 99 Oximetry 02/06/18 02/06/18 02/06/18 10:10 10:15 10:20 Temperature Pulse Rate 95 H 89 86 Respiratory Rate Blood Pressure Blood Pressure [Right] O2 Sat by Pulse 99 100 99 Oximetry 02/06/18 02/06/18 02/06/18 10:25 10:30 10:32 Temperature Pulse Rate 89 86 83 Respiratory Rate Blood Pressure 105/54 Blood Pressure [Right] O2 Sat by Pulse 99 99 Oximetry 02/06/18 02/06/18 02/06/18 10:35 10:40 10:45 Temperature Pulse Rate 92 H 90 85 Respiratory Rate Blood Pressure Blood Pressure [Right] O2 Sat by Pulse 99 99 99 Oximetry 02/06/18 02/06/18 02/06/18 10:50 10:55 11:00 Temperature Pulse Rate 93 H 101 H 80 Respiratory Rate Blood Pressure Blood Pressure [Right] O2 Sat by Pulse 100 99 100 Oximetry 02/06/18 02/06/18 02/06/18 11:05 11:10 11:15 Temperature Pulse Rate 79 80 83 Respiratory Rate Blood Pressure Blood Pressure [Right] O2 Sat by Pulse 100 99 99 Oximetry 02/06/18 02/06/18 02/06/18 11:20 11:25 11:30 Temperature Pulse Rate 88 92 H 94 H Respiratory Rate Blood Pressure Blood Pressure [Right] O2 Sat by Pulse 98 99 98 Oximetry 02/06/18 02/06/18 02/06/18 11:33 11:35 11:40 Temperature Pulse Rate 81 87 96 H Respiratory Rate Blood Pressure 120/66 Blood Pressure [Right] O2 Sat by Pulse 99 98 Oximetry 02/06/18 11:45 Temperature Pulse Rate 80 Respiratory Rate Blood Pressure Blood Pressure [Right] O2 Sat by Pulse 99 Oximetry - Exam Breasts: deferred Abdomen: Present: soft (gravid) Uterus: Present: normal (gravid) FHR: auscultation normal Uterine Contraction Monitor Mode: External Cervical Dilatation: 3 Uterine Contraction Pattern: Irregular Uterine Tone Measurement Phase: Resting - Labs Labs: Abnormal Labs 02/04/18 02/05/18 02/05/18 23:25 06:48 10:55 Hgb 9.5 L Hct 30.1 L MCH 25 L [place] % (Auto) 7.9 H Magnesium 4.30 H 4.40 H 02/05/18 02/05/18 17:07 22:40 Hgb Hct MCH [place] % (Auto) Magnesium 5.00 H 5.30 H Laboratory Results - last 24 hr 02/04/18 02/05/18 02/05/18 23:25 10:55 17:07 Magnesium 4.40 H 5.00 H RPR Nonreactive 02/05/18 22:40 Magnesium 5.30 H RPR
[2018-02-06 13:29] VITALS: BP 129/66
--- NOTE | 2018-02-06 13:43 | Discharge Summary ---
Providers - Providers Date of Admission: 02/05/18 01:31 Date of discharge: 02/06/18 Attending physician: JERRY ADAM MD 02/04/18 22:15 Consult to Physician [CONS] Routine Comment: Consulting Provider: ANAND SNYDER Physician Instructions: Reason For Exam: 3CM DILATED @34 WEEKS GESTATION; HX LABOR Primary care physician: JERRY ADAM MD Hospitalization Reason for admission: labor Episiotomy: none Laceration: none Discharge diagnosis: other (IUP at 35 wks, labor ) Hospital course: Pt was admitted for labor. She received magnesium sulfate for tocolysis and two doses of betamethasone. She also was treated for trichomonas and a UTI. Her labor arrested at 3 cm after being off of magnesium for twelve hours. She will be discharged with follow up in the office next week. Condition at discharge: Stable Disposition: DC-01 TO HOME OR SELFCARE - Discharge Diagnoses (1) Trichomonas exposure Status: Acute (2) H/O delivery, currently Status: Acute (3) History of delivery, currently in third trimester Status: Acute (4) labor Status: Acute Qualifiers: labor trimester: third trimester labor delivery status: without delivery Qualified Code(s): O60.03 - labor without delivery, third trimester Plan - Provider Discharge Summary Activity: routine Diet: routine Instructions: routine Additional instructions: [] Smoking cessation referral if applicable(refer to patient education folder for contact #) [] Refer to [facility]'s [facility] Booklet Call your doctor immediately for: * Fever > 100.5 * Heavy vaginal bleeding ( >1 pad per hour) * Severe persistent headache * Shortness of breath * Reddened, hot, painful area to leg or breast * Drainage or odor from incision. * Keep incision clean and dry at all times and follow doctor's instructions regarding bathing/showering - Follow up plan Follow up: SONIDO CAREY MD [Staff Physician] - 02/11/18 (New OB on Fri02/11/18 at 0130 PM. Please arrive 15 minutes early for your appt. )
[2018-02-06] MEDS ORDERED: COLACE PO SCH (14:00)
== END 2018-02-06 15:12 | disposition home or self-care (01) ==
LOC: TRG 19:09 → LD 02-05 01:31
PROVIDERS: ADMIT Obstetrics & Gynecology; ATTEND Obstetrics & Gynecology
DX: O62.9 Abnormality of forces of labor, unspecified (principal); Z3A.34 34 weeks gestation of pregnancy
CPT/HCPCS: 36415; 76805; 80307; 81001; 83735; 85025; 85660; 86592; 86706; 86762; 86803; 87806; 96361; 96365; 96366; 96375; G0378; J0696; J0702; J3010; J3475; J7120

== ENCOUNTER 2018-02-24 01:19 | Outpatient (CLI) | payer BC, MEDICAID ==
[2018-02-24 02:10] VITALS: BP 125/65
[2018-02-24] MEDS ORDERED: LACTATED RINGERS 1,000 ML IV ONE (02:10)
[2018-02-24 03:37] LABS: Amorphous Crystals,Urine 1+; Bacteria,Urine 2+ /HPF (Negative); Bilirubin,Urine NEG (Negative); Blood,Urine NEG (Negative); Color,Urine Yellow (Yellow); Mucus,Urine FEW /HPF; Protein,Urine <15 mg/dL mg/dL (Negative)
== END 2018-02-24 04:00 | disposition home or self-care (01) ==
LOC: TRG 01:19
PROVIDERS: ATTEND Obstetrics & Gynecology
DX: O62.9 Abnormality of forces of labor, unspecified (principal); Z87.891 Personal history of nicotine dependence; Z3A.37 37 weeks gestation of pregnancy
CPT/HCPCS: 59025; 81001

== ENCOUNTER 2019-04-19 00:13 | Outpatient (CLI) | payer BC, MEDICAID ==
[2019-04-19] MEDS ORDERED: LACTATED RINGERS 1,000 ML IV ONE (00:40)
[2019-04-19] MEDS ORDERED: LACTATED RINGERS 1,000 ML ONE (00:50)
[2019-04-19 01:25] LABS: Amphetamine Screen,Urine PRESUMPTIVE NEGATIVE; Bacteria,Urine 2+ /HPF (Negative); Benzodiazepines Screen,Urine PRESUMPTIVE NEGATIVE; Bilirubin,Urine NEG (Negative); Blood,Urine NEG (Negative); Cocaine Screen,Urine PRESUMPTIVE NEGATIVE; Color,Urine Yellow (Yellow); Hyaline Casts,Urine 2 /LPF; Methadone Screen,Urine PRESUMPTIVE NEGATIVE; Mucus,Urine FEW /HPF; Opiate Screen,Urine PRESUMPTIVE NEGATIVE; Protein,Urine <15 mg/dL mg/dL (Negative); Urobilinogen,Urine < 2.0 mg/dL (<2.0)
[2019-04-19 01:53] LABS: Cannabinoid Screen,Urine PRESUMPTIVE POSITIVE
[2019-04-19 01:58] VITALS: BP 120/66
== END 2019-04-19 02:35 | disposition home or self-care (01) ==
LOC: TRG 00:13
PROVIDERS: ATTEND Obstetrics & Gynecology
DX: O42.913 Preterm premature rupture of membranes, unspecified as to length of time between rupture and onset of labor, third trimester (principal); O62.9 Abnormality of forces of labor, unspecified; O26.893 Other specified pregnancy related conditions, third trimester; L29.8 Other pruritus; O09.213 Supervision of pregnancy with history of pre-term labor, third trimester; Z87.891 Personal history of nicotine dependence; Z3A.35 35 weeks gestation of pregnancy
CPT/HCPCS: 59025; 80307; 81001; 96360; J7120